=== PATIENT | male | born 1990 | race Caucasian/White ===

== ENCOUNTER 2022-03-24 17:58 | Emergency (ER) | payer MEDICAID, OTHER ==
[~2022-03-24] VITALS: Ht 177.8 cm; Wt 74.8 kg
[2022-03-24 18:03] VITALS: BP 111/64
[2022-03-24 18:22] LABS: BASOPHILS % (AUTO) 0.5 % (0.0-5.0); EOSINOPHILS % (AUTO) 0.7 % (0.0-8.0); HEMATOCRIT 45.4 % (42-54); LYMPHOCYTES % (AUTO) 14.1 % (21.0-51.0); MEAN CORPUSCULAR HEMOGLOBIN 28.6 pg (27.0-33.0); MEAN CORPUSCULAR HGB CONC 32.6 g/dL (32.0-36.0); MEAN CORPUSCULAR VOLUME 87.8 fL (79-99); MONOCYTES % (AUTO) 7.7 % (3.0-13.0); NEUTROPHILS % (AUTO) 76.7 % (40.0-77.0); PLATELET COUNT (AUTO) 204 K/uL (130-400); RED BLOOD CELL COUNT(AUTO) 5.17 MIL/uL (4.50-6.20); RED CELL DISTRIBUTION WIDTH 12.1 % (11.0-15.5); WHITE BLOOD COUNT (AUTO) 13.6 K/uL (4.8-10.8)
[2022-03-24 18:32] LABS: CREATININE 1.2 mg/dL (0.5-1.5)
[2022-03-24 18:39] LABS: ALBUMIN 4.3 g/dL (3.5-5.0); TOTAL PROTEIN, SERUM 7.6 g/dL (6.0-8.3)
[2022-03-24] MEDS ORDERED: IBUPROFEN 600 MG TABLET PO ONE (20:00)
== END 2022-03-24 22:06 | disposition home or self-care (01) ==
LOC: EDH 17:58
DX: R07.89 Other chest pain (principal)
CPT/HCPCS: 36415; 71045; 80053; 84484; 85025; 93005

== ENCOUNTER 2022-09-18 21:05 | Emergency (ER) | payer OTHER ==
[~2022-09-18] VITALS: Ht 175.3 cm; Wt 77.1 kg
[2022-09-18 21:07] VITALS: BP 111/78
[2022-09-18] MEDS ORDERED: POLYOS OD (22:00)
== END 2022-09-18 22:25 | disposition home or self-care (01) ==
LOC: EDH 21:05
DX: H10.32 Unspecified acute conjunctivitis, left eye (principal)

== ENCOUNTER 2023-03-08 12:40 | Emergency (ER) | payer OTHER ==
[~2023-03-08] VITALS: Ht 177.8 cm; Wt 78.0 kg
[~2023-03-08 12:40] MED LIST: POLYOS OD
[2023-03-08 12:48] VITALS: BP 122/85
[2023-03-08] MEDS ORDERED: PRED20TA3 PO (15:15)
[2023-03-08] MEDS ORDERED: IBUP-2070 PO (15:15)
== END 2023-03-08 15:23 | disposition home or self-care (01) ==
LOC: EDH 12:40
DX: H11.31 Conjunctival hemorrhage, right eye (principal); M25.511 Pain in right shoulder; M25.532 Pain in left wrist; Y04.0XXA Assault by unarmed brawl or fight, initial encounter; Y93.89 Activity, other specified; Y92.89 Other specified places as the place of occurrence of the external cause; Y99.8 Other external cause status
CPT/HCPCS: 73030; 73110